=== PATIENT | male | born 1950 | race Caucasian/White ===

== ENCOUNTER → 2016-03-17 | Outpatient (CLI) | payer MEDICARE ==
[2016-03-17 08:55] LABS: PROTHROMBIN TIME 23.8 SEC (11.4-15.4)
== END ==
LOC: OD 08:12
PROVIDERS: ATTEND Internal Medicine
DX: I48.0 Paroxysmal atrial fibrillation (principal)
CPT/HCPCS: 36415; 85610

== ENCOUNTER → 2016-04-14 | Outpatient (CLI) | payer MEDICARE ==
[2016-04-14 08:34] LABS: PROTHROMBIN TIME 30.1 SEC (11.4-15.4)
[2016-04-14 08:49] LABS: ALANINE AMINOTRANSFERASE 32 U/L (21-72); ALBUMIN 3.9 g/dL (3.5-5.0); ALKALINE PHOSPHATASE 60 U/L (38-126); ANION GAP 9 (5-19); ASPARTATE AMINO TRANSFERASE 28 U/L (17-59); BILIRUBIN,TOTAL 0.4 mg/dL (0.2-1.3); BLOOD UREA NITROGEN 16 mg/dL (7-20); CARBON DIOXIDE 28 mmol/L (22-30); CHLORIDE 102 mmol/L (98-107); CHOLESTEROL 137.63 mg/dL (0-200); CREATININE RESULT 0.64 mg/dL (0.52-1.25); Direct HDL 41 mg/dL (>40); GLUCOSE 137 mg/dL (75-110); POTASSIUM 4.6 mmol/L (3.6-5.0); SODIUM 138.9 mmol/L (137-145); TRIGLYCERIDES 166 mg/dL (<150)
[2016-04-14 09:00] LABS: DIRECT LDL 70 mg/dL (<100)
[2016-04-14 09:10] LABS: VLDL CHOLESTEROL 33.2 mg/dL (10-31)
== END ==
LOC: OD 07:41
PROVIDERS: ATTEND Internal Medicine
DX: E78.4 Other hyperlipidemia (principal); I10 Essential (primary) hypertension; E11.9 Type 2 diabetes mellitus without complications; I48.0 Paroxysmal atrial fibrillation; I25.118 Atherosclerotic heart disease of native coronary artery with other forms of angina pectoris; I45.19 Other right bundle-branch block; R01.1 Cardiac murmur, unspecified; J45.998 Other asthma; M10.9 Gout, unspecified; G47.30 Sleep apnea, unspecified; Z79.899 Other long term (current) drug therapy; I25.2 Old myocardial infarction
CPT/HCPCS: 36415; 80053; 80061; 85610

== ENCOUNTER → 2016-06-16 | Outpatient (CLI) | payer MEDICARE ==
[2016-06-16 09:34] LABS: PROTHROMBIN TIME 27.2 SEC (11.4-15.4)
== END ==
LOC: OD 08:15
PROVIDERS: ATTEND Internal Medicine
DX: I48.0 Paroxysmal atrial fibrillation (principal)
CPT/HCPCS: 36415; 85610

== ENCOUNTER → 2016-08-17 | Outpatient (CLI) | payer MEDICARE ==
[2016-08-17 09:30] LABS: PROTHROMBIN TIME 28.9 SEC (11.4-15.4)
== END ==
LOC: OD 08:24
PROVIDERS: ATTEND Internal Medicine
DX: I48.0 Paroxysmal atrial fibrillation (principal)
CPT/HCPCS: 36415; 85610

== ENCOUNTER → 2016-09-17 | Outpatient (CLI) | payer MEDICARE | LOC: OD 08:56 | PROVIDERS: ATTEND Internal Medicine | DX: I48.0 Paroxysmal atrial fibrillation (principal) | CPT/HCPCS: 36415; 85610 ==

== ENCOUNTER → 2016-10-19 | Outpatient (CLI) | payer MEDICARE ==
[2016-10-19 08:37] LABS: PROTHROMBIN TIME 25.2 SEC (11.4-15.4)
[2016-10-19 08:51] LABS: ALANINE AMINOTRANSFERASE 33 U/L (21-72); ALBUMIN 4.1 g/dL (3.5-5.0); ALKALINE PHOSPHATASE 61 U/L (38-126); ANION GAP 12 (5-19); ASPARTATE AMINO TRANSFERASE 26 U/L (17-59); BILIRUBIN,DIRECT 0.4 mg/dL (0.0-0.4); BILIRUBIN,TOTAL 0.4 mg/dL (0.2-1.3); BLOOD UREA NITROGEN 20 mg/dL (7-20); CALCIUM 8.5 mg/dL (8.4-10.2); CARBON DIOXIDE 29 mmol/L (22-30); CHLORIDE 100 mmol/L (98-107); CHOLESTEROL 128.27 mg/dL (0-200); CREATININE RESULT 0.67 mg/dL (0.52-1.25); Direct HDL 36 mg/dL (>40); GLUCOSE 160 mg/dL (75-110); POTASSIUM 4.9 mmol/L (3.6-5.0); SODIUM 141.3 mmol/L (137-145); TOTAL PROTEIN 6.6 g/dL (6.3-8.2); TRIGLYCERIDES 152 mg/dL (<150)
[2016-10-19 09:02] LABS: DIRECT LDL 70 mg/dL (<100)
[2016-10-19 09:03] LABS: VLDL CHOLESTEROL 30.4 mg/dL (10-31)
== END ==
LOC: OD 07:25
PROVIDERS: ATTEND Internal Medicine
DX: Z01.810 Encounter for preprocedural cardiovascular examination (principal); I48.0 Paroxysmal atrial fibrillation; I25.10 Atherosclerotic heart disease of native coronary artery without angina pectoris; I45.19 Other right bundle-branch block; R01.1 Cardiac murmur, unspecified; E78.4 Other hyperlipidemia; I10 Essential (primary) hypertension; I25.2 Old myocardial infarction; J45.998 Other asthma; M10.9 Gout, unspecified; E11.9 Type 2 diabetes mellitus without complications; G47.30 Sleep apnea, unspecified; Z79.899 Other long term (current) drug therapy
CPT/HCPCS: 36415; 80053; 80061; 85610

== ENCOUNTER → 2016-11-18 | Outpatient (CLI) | payer MEDICARE ==
[2016-11-18 10:15] LABS: PROTHROMBIN TIME 28.2 SEC (11.4-15.4)
== END ==
LOC: OD 09:06
PROVIDERS: ATTEND Internal Medicine
DX: I48.0 Paroxysmal atrial fibrillation (principal)
CPT/HCPCS: 36415; 85610

== ENCOUNTER → 2017-01-18 | Outpatient (CLI) | payer MEDICARE ==
[2017-01-18 08:23] LABS: PROTHROMBIN TIME 21.6 SEC (11.4-15.4)
== END ==
LOC: OD 07:40
PROVIDERS: ATTEND Internal Medicine
DX: I48.0 Paroxysmal atrial fibrillation (principal)
CPT/HCPCS: 36415; 85610

== ENCOUNTER → 2017-03-17 | Outpatient (CLI) | payer MEDICARE ==
[2017-03-17 11:06] LABS: INTERNATIONAL RATION (INR) 1.82; PROTHROMBIN TIME 22.1 SEC (11.4-15.4)
== END ==
LOC: OD 10:22
PROVIDERS: ATTEND Internal Medicine
DX: I48.0 Paroxysmal atrial fibrillation (principal)
CPT/HCPCS: 36415; 85610

== ENCOUNTER → 2017-05-02 | Outpatient (CLI) | payer MEDICARE ==
[2017-05-02 11:03] LABS: INTERNATIONAL RATION (INR) 2.47
== END ==
LOC: OD 10:11
PROVIDERS: ATTEND Internal Medicine
DX: I25.10 Atherosclerotic heart disease of native coronary artery without angina pectoris (principal); E11.9 Type 2 diabetes mellitus without complications; I48.0 Paroxysmal atrial fibrillation; I25.2 Old myocardial infarction; R01.1 Cardiac murmur, unspecified; E78.4 Other hyperlipidemia; I10 Essential (primary) hypertension; G47.30 Sleep apnea, unspecified; Z79.899 Other long term (current) drug therapy
CPT/HCPCS: 36415; 83036; 85610

== ENCOUNTER → 2017-06-16 | Outpatient (CLI) | payer MEDICARE ==
[2017-06-16 09:21] LABS: INTERNATIONAL RATION (INR) 2.16; PROTHROMBIN TIME 25.1 SEC (11.4-15.4)
== END ==
LOC: OD 08:19
PROVIDERS: ATTEND Internal Medicine
DX: I48.0 Paroxysmal atrial fibrillation (principal)
CPT/HCPCS: 36415; 85610

== ENCOUNTER → 2017-07-14 | Outpatient (CLI) | payer MEDICARE ==
[2017-07-14 09:01] LABS: INTERNATIONAL RATION (INR) 2.25; PROTHROMBIN TIME 25.9 SEC (11.4-15.4)
== END ==
LOC: OD 07:51
PROVIDERS: ATTEND Internal Medicine
DX: I48.0 Paroxysmal atrial fibrillation (principal)
CPT/HCPCS: 36415; 85610

== ENCOUNTER → 2017-09-15 | Outpatient (CLI) | payer MEDICARE ==
[2017-09-15 08:34] LABS: INTERNATIONAL RATION (INR) 2.15
== END ==
LOC: OD 07:37
PROVIDERS: ATTEND Internal Medicine
DX: I48.0 Paroxysmal atrial fibrillation (principal)
CPT/HCPCS: 36415; 85610

== ENCOUNTER → 2017-10-17 | Outpatient (CLI) | payer MEDICARE ==
[2017-10-17 09:25] LABS: INTERNATIONAL RATION (INR) 2.67; PROTHROMBIN TIME 29.7 SEC (11.4-15.4)
== END ==
LOC: OD 08:04
PROVIDERS: ATTEND Internal Medicine
DX: I48.0 Paroxysmal atrial fibrillation (principal)
CPT/HCPCS: 36415; 85610

== ENCOUNTER → 2017-11-16 | Outpatient (CLI) | payer MEDICARE ==
[2017-11-16 11:05] LABS: INTERNATIONAL RATION (INR) 2.69; PROTHROMBIN TIME 29.9 SEC (11.4-15.4)
== END ==
LOC: OD 09:36
PROVIDERS: ATTEND Internal Medicine
DX: I48.0 Paroxysmal atrial fibrillation (principal)
CPT/HCPCS: 36415; 85610

== ENCOUNTER 2017-11-24 13:57 | Emergency (ER) | payer MEDICARE ==
[2017-11-24 14:09] VITALS: BP 114/53
[2017-11-24] MEDS ORDERED: DIPH/PERTUSS(ACELL)/TETANUS VAC/PF 0.5 ML SYR (>=10YO) IM ONE (14:37)
--- NOTE | 2017-11-24 15:10 | ER Document Report ---
ED Hand/Wrist Injury - General Chief Complaint: Hand Injury Stated Complaint: HAND LACERATION Time Seen by Provider: 11/24/17 14:24 Mode of Arrival: Ambulatory Information source: Patient Notes: Patient is a 67-year-old morbidly obese male comes emergency room complaining of having a nail driven through the thumb and index finger into his hand. He states he was using a nail gun missed its marked and he shot a nail directly into the his hand between the thumb and index finger into the webspace directed back towards the wrist. He states there estimates the nail to be in 3-4 inches long. He took a hammer and pulled it out. He stated that it came out relatively easy and he does not believe he had anything major because he has full range of motion in his hand. He is here primarily because he needs a tetanus shot and he wanted to make sure he did not fracture anything by the high -powered force of the nail. He also has a history of A. fib and is on blood thinners warfarin to be exact. Last checked his level approximately a week ago and it was therapeutic. He denies any other injuries at this time. He denies any severe pain or discomfort. TRAVEL OUTSIDE OF THE [place] IN LAST 30 DAYS: No - HPI Patient complains to provider of: Puncture wound to hand Injury to: Palm, Thumb, Index finger Onset: Just prior to arrival Where: Home Timing: Constant, Better Quality of pain: Achy Severity: Moderate Pain Level: 3 Context: High pressure injection - Related Data Allergies/Adverse Reactions: No Known Allergies Allergy (Verified 11/24/17 14:01) Past Medical History - General Information source: Patient, Relative - Social History Smoking Status: Former Smoker Cigarette use (# per day): No Chew tobacco use (# tins/day): No Smoking Education Provided: No Frequency of alcohol use: None Drug Abuse: None Lives with: Family Family History: Reviewed & Not Pertinent, CAD Patient has suicidal ideation: No Patient has homicidal ideation: No - Past Medical History Cardiac Medical History: Reports: Hx Coronary Artery Disease, Hx DVT, Hx Heart Attack, Hx Hypercholesterolemia, Hx Hypertension, Hx Pulmonary Embolism Pulmonary Medical History: Reports: Hx Asthma, Hx Bronchitis, Hx Sleep Apnea Denies: Hx COPD, Hx Pneumonia, Hx Tuberculosis Neurological Medical History: Denies: Hx Cerebrovascular Accident, Hx Seizures Endocrine Medical History: Reports: Hx Diabetes Mellitus Type 1, Hx Diabetes Mellitus Type 2 Renal/ Medical History: Denies: Hx Peritoneal Dialysis GI Medical History: Reports: Hx Ulcer Musculoskeletal Medical History: Reports Hx Arthritis - generalized Traumatic Medical History: Reports: Hx Fractures Past Surgical History: Reports: Hx Cardiac Surgery - bypass, Hx Coronary Artery Bypass Graft. Denies: Hx Pacemaker - Immunizations Hx Diphtheria, Pertussis, Tetanus Vaccination: Yes Hx Pneumococcal Vaccination: 02/21/09 Review of Systems - Review of Systems Constitutional: No symptoms reported EENT: No symptoms reported Cardiovascular: No symptoms reported Respiratory: No symptoms reported Gastrointestinal: No symptoms reported Genitourinary: No symptoms reported Male Genitourinary: No symptoms reported Musculoskeletal: Joint swelling, Muscle pain, Muscle stiffness. denies: Joint pain, Deformity Skin: No symptoms reported, Other - Puncture wound to 1 of right hand Hematologic/Lymphatic: No symptoms reported Neurological/Psychological: No symptoms reported -: Yes All other systems reviewed and negative Physical Exam - Vital signs Vitals: Temp Pulse Resp BP Pulse Ox 97.6 F 82 14 114/53 L 94 11/24/17 14:08 11/24/17 14:08 11/24/17 14:08 11/24/17 14:08 11/24/17 14:08 Interpretation: Normal - Notes Notes: Patient is a well-nourished well-developed obese 67-year-old male no apparent distress - General General appearance: Alert - HEENT Head: Normocephalic, Atraumatic Eyes: Normal - Respiratory Respiratory status: No respiratory distress Chest status: Nontender Breath sounds: Normal. No: Rales, Rhonchi, Stridor, Wheezing Chest palpation: Normal - Cardiovascular Rhythm: Regular Heart sounds: Normal auscultation Murmur: No - Extremities General upper extremity: Tender, Edema, Normal color, Normal ROM, Normal strength, Normal temperature Hand: Tender, No evidence of FB, Swelling, Other - Examination patient's right hand shows her to be a slight amount of dried blood on the dorsal aspect between the thumb and index finger. There is a closed area of suspected entrance and exit of a puncture wound of the high impact nail gun. There is no surrounding trauma that is visual. 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 He also has good cap refill in the nailbeds of all the fingers of the right hand. On inspection it appears as though patient has missed all vital bones and tendons in that hand.. No: Tendon deficit - Skin Skin Temperature: Warm Skin Moisture: Dry Skin Color: Normal, Egan, Other - See hand above and description Course - Re-evaluation Re-evalutation: 11/24/17 16:09 After inspection of the puncture wound there was really no entrance or laceration that needed to be sewn. We cleaned the area extensively and he was hardly even bleeding so we just applied a Band-Aid. There was nothing to suture. I have explained to patient the importance of watching this very closely. He is a diabetic and I have informed him that even a month out or even a month and a half out that if he notices swelling and redness in the hand to come right to ER. Informed him that this is a joint space area and even though he is got full range of motion I do not know if that nail went into any joint space. He acknowledged understanding of this and will write it down on his calendar. I am going to place patient on Bactrim for coverage and a little pain medication for the discomfort that he is going to be feeling. - Vital Signs Vital signs: Temp Pulse Resp BP Pulse Ox 97.6 F 82 14 114/53 L 94 11/24/17 14:08 11/24/17 14:08 11/24/17 14:08 11/24/17 14:08 11/24/17 14:08 Discharge - Discharge Clinical Impression: Puncture wound of hand, right Qualifiers: Encounter type: initial encounter Foreign body presence: with foreign body Qualified Code(s): S61.441A - Puncture wound with foreign body of right hand, initial encounter Injury of right hand by nail gun Qualifiers: Encounter type: initial encounter Qualified Code(s): S69.91XA - Unspecified injury of right wrist, hand and finger(s), initial encounter; W29.4XXA - Contact with nail gun, initial encounter; W29.4XXA - Contact with nail gun, initial encounter Condition: Stable Disposition: HOME, SELF-CARE Instructions: Puncture Wound ([facility]) Additional Instructions: Home setting rest. You may ice down the area 3 times a day. Take all of the antibiotics. As we discussed you must monitor this puncture wound very closely. Even though you have full range of motion and strength with that hand and you take all the antibiotics in a month to month and a half from now if you get swelling of the hand and redness occurring you come to the ER at once. The reason is I do not know what anatomy this high velocity nail punctured on its way in. If he got into any kind of joint space in the joint space closes up and gets infected it can take that long for it to materialize. So if you have any concerns about the swelling of your hand or the loss of function even after a month and a half see your primary care provider or return to ER for recheck. Let the provider know that she had a high velocity puncture wound on November 24. Return to ER if you have any concerns or problems in the meantime. Prescriptions: Hydrocodone/Acetaminophen [[place] 7.5-325 mg Tablet] 1 tab PO Q6 #10 tablet Sulfamethoxazole/Trimethoprim [Bactrim Ds Tablet] 1 each PO BID #20 tablet Referrals: OLEG KING MD [Primary Care Provider] - Follow up as needed
--- NOTE | 2017-11-24 15:49 | RADIOLOGY REPORT (SQ) ---
EXAM DESCRIPTION: HAND RIGHT 3 VIEWS COMPLETED DATE/TIME: 11/24/2017 2:51 pm REASON FOR STUDY: put 4 inch nail through hand, Pulled out himself shot right hand with a nail gun, pain in the 2nd through 4th metacarpal region COMPARISON: None. EXAM PARAMETERS: NUMBER OF VIEWS: Three views. TECHNIQUE: AP, lateral and oblique radiographic images acquired of the right hand. LIMITATIONS: None. FINDINGS: MINERALIZATION: Normal. BONES: No acute fracture or dislocation. No worrisome bone lesions. JOINTS: Mild changes of osteoarthritis with joint space narrowing and bony spurring at the thumb MCP and interphalangeal joint, 2nd finger PIP and DIP joint, 3rd finger DIP joint. SOFT TISSUES: No soft tissue swelling. No retained radiopaque foreign body. OTHER: No other significant finding. IMPRESSION: No retained radiopaque foreign body. No acute fracture. TECHNICAL DOCUMENTATION: JOB ID: [id number] [employer]- All Rights Reserved Reading location - IP/workstation name: [email or web address]
== END 2017-11-24 16:47 | disposition home or self-care (01) ==
LOC: ER 13:57
DX: S61.441A Puncture wound with foreign body of right hand, initial encounter (principal); S69.91XA Unspecified injury of right wrist, hand and finger(s), initial encounter; W29.4XXA Contact with nail gun, initial encounter; E78.00 Pure hypercholesterolemia, unspecified; I25.10 Atherosclerotic heart disease of native coronary artery without angina pectoris; I10 Essential (primary) hypertension; E11.9 Type 2 diabetes mellitus without complications; Z23 Encounter for immunization; Z86.718 Personal history of other venous thrombosis and embolism; I25.2 Old myocardial infarction; Z95.1 Presence of aortocoronary bypass graft; Z79.02 Long term (current) use of antithrombotics/antiplatelets
CPT/HCPCS: 90471; 90715; 99283

== ENCOUNTER → 2017-12-14 | Outpatient (CLI) | payer MEDICARE ==
[2017-12-14 10:37] LABS: INTERNATIONAL RATION (INR) 2.63; PROTHROMBIN TIME 29.3 SEC (11.4-15.4)
== END ==
LOC: OD 09:18
PROVIDERS: ATTEND Internal Medicine
DX: I48.0 Paroxysmal atrial fibrillation (principal)
CPT/HCPCS: 36415; 85610

== ENCOUNTER → 2018-01-19 | Outpatient (CLI) | payer MEDICARE | LOC: OD 08:34 | PROVIDERS: ATTEND Internal Medicine | DX: I48.0 Paroxysmal atrial fibrillation (principal) | CPT/HCPCS: 36415; 85730 ==

== ENCOUNTER → 2018-02-16 | Outpatient (CLI) | payer MEDICARE ==
[2018-02-16 09:05] LABS: INTERNATIONAL RATION (INR) 2.47; PROTHROMBIN TIME 27.9 SEC (11.4-15.4)
== END ==
LOC: OD 08:02
PROVIDERS: ATTEND Internal Medicine
DX: I48.0 Paroxysmal atrial fibrillation (principal)
CPT/HCPCS: 36415; 85610

== ENCOUNTER → 2018-03-17 | Outpatient (CLI) | payer MEDICARE ==
[2018-03-17 10:23] LABS: INTERNATIONAL RATION (INR) 1.99; PROTHROMBIN TIME 23.6 SEC (11.4-15.4)
[2018-03-17 10:29] LABS: CHOLESTEROL 155.48 mg/dL (0-200); TRIGLYCERIDES 198 mg/dL (<150)
[2018-03-17 10:40] LABS: DIRECT LDL 87 mg/dL (<100)
[2018-03-17 10:43] LABS: VLDL CHOLESTEROL 39.6 mg/dL (10-31)
== END ==
LOC: OD 08:59
PROVIDERS: ATTEND Internal Medicine
DX: I25.10 Atherosclerotic heart disease of native coronary artery without angina pectoris (principal); I10 Essential (primary) hypertension; E11.9 Type 2 diabetes mellitus without complications; E78.49 Other hyperlipidemia; J45.998 Other asthma; R01.1 Cardiac murmur, unspecified; M10.9 Gout, unspecified; G47.30 Sleep apnea, unspecified; I45.19 Other right bundle-branch block; I25.2 Old myocardial infarction; Z79.899 Other long term (current) drug therapy
CPT/HCPCS: 36415; 80061; 83036; 85610

== ENCOUNTER → 2018-06-16 | Outpatient (CLI) | payer MEDICARE ==
[2018-06-16 10:03] LABS: INTERNATIONAL RATION (INR) 2.56; PROTHROMBIN TIME 28.7 SEC (11.4-15.4)
== END ==
LOC: OD 09:22
PROVIDERS: ATTEND Internal Medicine
DX: I48.0 Paroxysmal atrial fibrillation (principal)
CPT/HCPCS: 36415; 85610

== ENCOUNTER → 2018-08-14 | Outpatient (CLI) | payer MEDICARE ==
[2018-08-14 09:50] LABS: INTERNATIONAL RATION (INR) 1.82
== END ==
LOC: OD 08:58
PROVIDERS: ATTEND Internal Medicine
DX: I48.0 Paroxysmal atrial fibrillation (principal)
CPT/HCPCS: 36415; 85610

== ENCOUNTER → 2018-09-15 | Outpatient (CLI) | payer MEDICARE ==
[2018-09-15 09:52] LABS: INTERNATIONAL RATION (INR) 2.22
== END ==
LOC: OD 08:44
PROVIDERS: ATTEND Internal Medicine
DX: I48.0 Paroxysmal atrial fibrillation (principal)
CPT/HCPCS: 36415; 85610

== ENCOUNTER 2018-10-25 22:45 | Emergency (ER) | payer MEDICARE ==
[2018-10-25 22:55] VITALS: BP 175/74
--- NOTE | 2018-10-26 00:48 | ER Document Report ---
HPI - HPI Patient complains to provider of: laceration L [place] Time Seen by Provider: 10/25/18 23:31 Pain Level: Denies Context: 68-year-old male with insulin-dependent diabetes mellitus on Coumadin presents to the emergency department for a laceration on his left anterior lower leg when he was walking through some brush and he got jabbed by a stick earlier today. Patient states that his tried to put a dressing on it and it would not stop bleeding. Patient states his last tetanus was 1 year ago. Patient denies any dizziness or lightheadedness, massive blood loss, weakness, syncope, acute shortness of breath or chest pain, palpitations, or any other symptoms. Past Medical History - Social History Smoking Status: Former Smoker Family History: Reviewed & Not Pertinent, CAD Patient has suicidal ideation: No Patient has homicidal ideation: No - Past Medical History Cardiac Medical History: Reports: Hx Coronary Artery Disease, Hx DVT, Hx Heart Attack, Hx Hypercholesterolemia, Hx Hypertension, Hx Pulmonary Embolism Pulmonary Medical History: Reports: Hx Asthma, Hx Bronchitis, Hx Sleep Apnea Denies: Hx COPD, Hx Pneumonia, Hx Tuberculosis Neurological Medical History: Denies: Hx Cerebrovascular Accident, Hx Seizures Endocrine Medical History: Reports: Hx Diabetes Mellitus Type 1, Hx Diabetes Mellitus Type 2 Renal/ Medical History: Denies: Hx Peritoneal Dialysis GI Medical History: Reports: Hx Ulcer Musculoskeletal Medical History: Reports Hx Arthritis - generalized Traumatic Medical History: Reports: Hx Fractures Past Surgical History: Reports: Hx Cardiac Surgery - bypass, Hx Coronary Artery Bypass Graft. Denies: Hx Pacemaker - Immunizations Hx Diphtheria, Pertussis, Tetanus Vaccination: Yes Hx Pneumococcal Vaccination: 02/21/09 Vertical Provider Document - CONSTITUTIONAL Notes: PHYSICAL EXAMINATION: Reviewed vital signs and charting by RN GENERAL: Alert, interacts well. No acute distress. HEAD: Normocephalic, atraumatic. EYES: Pupils equal and round. Extraocular movements intact. ENT: Oral mucosa moist, tongue midline. NECK: Full range of motion. Trachea midline. EXTREMITIES: Moves all 4 extremities spontaneously. Small laceration U-shaped continually oozing blood, no foreign body seen PSYCH: Normal affect, normal mood. SKIN: Warm, dry, normal turgor. See above for laceration - INFECTION CONTROL TRAVEL OUTSIDE OF THE [place] IN LAST 30 DAYS: No Course - Re-evaluation Re-evalutation: 10/26/18 00:47 Patient is well-appearing with a slow oozing laceration. Last tetanus 1 year ago, because patient is on anticoagulation plan is to perform a primary closure. Wound was anesthetized with lidocaine 1% with epinephrine and copiously irrigated and explored. There is no evidence of foreign body seen. Wound was closed with 4-0 Prolene in 3 sutures placed, bleeding control was obtained, we will place a Telfa pad and a gentle pressure dressing over it. Patient does not require his tetanus shot. Patient has been given strict return precautions and discharge instructions. Patient understands and agrees with plan stable for discharge. - Vital Signs Vital signs: Temp Pulse Resp BP Pulse Ox 97.6 F 93 22 H 175/74 H 95 10/25/18 22:47 10/25/18 22:47 10/25/18 22:47 10/25/18 22:47 10/25/18 22:47 Procedures - Laceration/Wound Repair Left Distal Leg Wound length (cm): 1 Wound's Depth, Shape: Superficial, Irregular Laceration pre-procedure: Sterile PPE donned Anesthetic type: 1% Lidocaine w/epi Wound explored: Clean, No foreign body removed Irrigated w/ Saline (mLs): 500 Wound Debrided: Minimal Wound Repaired With: Sutures Suture Size/Type: 4:0, Prolene Post-procedure wound care: Sterile dressing applied Post-procedure NV exam normal: Yes Complications: No Discharge - Discharge Clinical Impression: Laceration Condition: Good Disposition: HOME, SELF-CARE Additional Instructions: Please return to your primary doctor, the ED, or an urgent care in 7 days for suture removal. Return immediately if you develop spreading redness around the wound, pus from the wound, worsening pain, or a fever of >101. Keep the area clean and dry. Wash gently with soap and water twice daily and cover with antibiotic ointment. Referrals: OLEG KING MD [Primary Care Provider] - Follow up as needed
== END 2018-10-26 00:56 | disposition home or self-care (01) ==
LOC: ER 22:45
DX: S81.812A Laceration without foreign body, left lower leg, initial encounter (principal); W22.8XXA Striking against or struck by other objects, initial encounter; Y93.01 Activity, walking, marching and hiking; I25.10 Atherosclerotic heart disease of native coronary artery without angina pectoris; I10 Essential (primary) hypertension; I25.2 Old myocardial infarction; J45.909 Unspecified asthma, uncomplicated; E11.9 Type 2 diabetes mellitus without complications; Z79.4 Long term (current) use of insulin; Z79.01 Long term (current) use of anticoagulants; Z87.891 Personal history of nicotine dependence; Z95.5 Presence of coronary angioplasty implant and graft; Z86.711 Personal history of pulmonary embolism; Z86.718 Personal history of other venous thrombosis and embolism
CPT/HCPCS: 99282

== ENCOUNTER → 2018-12-14 | Outpatient (CLI) | payer MEDICARE ==
[2018-12-14 09:55] LABS: INTERNATIONAL RATION (INR) 2.13; PROTHROMBIN TIME 24.2 SEC (11.4-15.4)
== END ==
LOC: OD 08:51
PROVIDERS: ATTEND Internal Medicine
DX: I48.0 Paroxysmal atrial fibrillation (principal)
CPT/HCPCS: 36415; 85610

== ENCOUNTER → 2019-03-15 | Outpatient (CLI) | payer MEDICARE ==
[2019-03-15 11:46] LABS: INTERNATIONAL RATION (INR) 1.94; PROTHROMBIN TIME 22.4 SEC (11.4-15.4)
== END ==
LOC: OD 10:50
PROVIDERS: ATTEND Internal Medicine
DX: I48.0 Paroxysmal atrial fibrillation (principal)
CPT/HCPCS: 36415; 85610

== ENCOUNTER → 2019-04-18 | Outpatient (CLI) | payer MEDICARE ==
[2019-04-18 10:09] LABS: INTERNATIONAL RATION (INR) 2.01
== END ==
LOC: OD 08:59
PROVIDERS: ATTEND Internal Medicine
DX: I48.0 Paroxysmal atrial fibrillation (principal)
CPT/HCPCS: 36415; 85610

== ENCOUNTER → 2019-05-15 | Outpatient (CLI) | payer MEDICARE ==
[2019-05-15 13:25] LABS: INTERNATIONAL RATION (INR) 1.85; PROTHROMBIN TIME 21.5 SEC (11.4-15.4)
== END ==
LOC: OD 12:44
PROVIDERS: ATTEND Internal Medicine
DX: I48.0 Paroxysmal atrial fibrillation (principal)
CPT/HCPCS: 36415; 85610

== ENCOUNTER → 2019-06-13 | Outpatient (CLI) | payer MEDICARE ==
[2019-06-13 09:01] LABS: PROTHROMBIN TIME 22.1 SEC (11.4-15.4)
== END ==
LOC: OD 08:22
PROVIDERS: ATTEND Internal Medicine
DX: I48.0 Paroxysmal atrial fibrillation (principal)
CPT/HCPCS: 36415; 85610

== ENCOUNTER → 2019-07-18 | Outpatient (CLI) | payer MEDICARE ==
[2019-07-18 09:11] LABS: INTERNATIONAL RATION (INR) 2.37; PROTHROMBIN TIME 26.3 SEC (11.4-15.4)
== END ==
LOC: OD 08:08
PROVIDERS: ATTEND Internal Medicine
DX: I48.0 Paroxysmal atrial fibrillation (principal)
CPT/HCPCS: 36415; 85610

== ENCOUNTER → 2019-08-15 | Outpatient (CLI) | payer MEDICARE ==
[2019-08-15 10:43] LABS: INTERNATIONAL RATION (INR) 1.97; PROTHROMBIN TIME 22.7 SEC (11.4-15.4)
== END ==
LOC: OD 09:54
PROVIDERS: ATTEND Internal Medicine
DX: I48.0 Paroxysmal atrial fibrillation (principal)
CPT/HCPCS: 36415; 85610

== ENCOUNTER → 2019-11-13 | Outpatient (CLI) | payer MEDICARE ==
[2019-11-13 16:28] LABS: INTERNATIONAL RATION (INR) 1.82; PROTHROMBIN TIME 21.1 SEC (11.4-15.4)
== END ==
LOC: OD 14:29
PROVIDERS: ATTEND Internal Medicine
DX: I48.0 Paroxysmal atrial fibrillation (principal)
CPT/HCPCS: 36415; 85610

== ENCOUNTER → 2019-12-19 | Outpatient (CLI) | payer MEDICARE ==
[2019-12-19 10:23] LABS: INTERNATIONAL RATION (INR) 1.13; PROTHROMBIN TIME 14.7 SEC (11.4-15.4)
== END ==
LOC: OD 08:23
PROVIDERS: ATTEND Internal Medicine
DX: Z51.81 Encounter for therapeutic drug level monitoring (principal); Z79.01 Long term (current) use of anticoagulants; I48.0 Paroxysmal atrial fibrillation
CPT/HCPCS: 36415; 85610

== ENCOUNTER → 2020-01-15 | Outpatient (CLI) | payer MEDICARE ==
[2020-01-15 09:59] LABS: INTERNATIONAL RATION (INR) 1.27; PROTHROMBIN TIME 16.1 SEC (11.4-15.4)
== END ==
LOC: OD 09:13
PROVIDERS: ATTEND Internal Medicine
DX: I48.0 Paroxysmal atrial fibrillation (principal); Z51.81 Encounter for therapeutic drug level monitoring; Z79.01 Long term (current) use of anticoagulants
CPT/HCPCS: 36415; 85610

== ENCOUNTER → 2020-01-29 | Outpatient (CLI) | payer MEDICARE | LOC: OD 15:06 | PROVIDERS: ATTEND Otolaryngology | DX: J30.9 Allergic rhinitis, unspecified (principal) | CPT/HCPCS: 36415; 82785; 86003 ==

== ENCOUNTER → 2020-03-12 | Outpatient (CLI) | payer MEDICARE ==
[2020-03-12 09:53] LABS: ABSOLUTE EOSINOPHILS # (AUTO) 0.2 10^3/uL (0.0-0.6); ABSOLUTE LYMPHOCYTES (AUTO) 3.9 10^3/uL (0.5-4.7); ABSOLUTE MONOCYTES (AUTO) 0.6 10^3/uL (0.1-1.4); ABSOLUTE NEUT (AUTO) 4.8 10^3/uL (1.7-8.2); BASOPHILS % (AUTO) 0.5 % (0-2); EOSINOPHILS % (AUTO) 2.5 % (0-6); HEMATOCRIT 37.7 % (37.9-51.0); HEMOGLOBIN 12.4 g/dL (13.5-17.0); LYMPHOCYTES % (AUTO) 40.7 % (13-45); MEAN CORPUSCULAR HEMOGLOBIN 27.5 pg (27.0-33.4); MEAN CORPUSCULAR HGB CONC 32.8 g/dL (32.0-36.0); MEAN CORPUSCULAR VOLUME 84 fl (80-97); MONOCYTES % (AUTO) 6.4 % (3-13); PLATELET COUNT 208 10^3/uL (150-450); RED CELL DISTRIBUTION WIDTH 16.3 % (11.5-14.0); SEGMENTED NEUTROPHILS % (AUTO) 49.9 % (42-78); TOTAL CELLS COUNTED % (AUTO) 100 %; WHITE BLOOD COUNT 9.6 10^3/uL (4.0-10.5)
[2020-03-12 09:57] LABS: INTERNATIONAL RATION (INR) 1.56; PROTHROMBIN TIME 18.8 SEC (11.4-15.4)
[2020-03-12 10:11] LABS: ALBUMIN 4.3 g/dL (3.5-5.0); ALKALINE PHOSPHATASE 67 U/L (38-126); ANION GAP 8 (5-19); ASPARTATE AMINO TRANSFERASE 31 U/L (17-59); BILIRUBIN,DIRECT 0.2 mg/dL (0.0-0.4); BILIRUBIN,TOTAL 0.4 mg/dL (0.2-1.3); BLOOD UREA NITROGEN 18 mg/dL (7-20); CALCIUM 9.1 mg/dL (8.4-10.2); CARBON DIOXIDE 29 mmol/L (22-30); CHLORIDE 101 mmol/L (98-107); CHOLESTEROL 139.78 mg/dL (0-200); GLUCOSE 160 mg/dL (75-110); POTASSIUM 4.5 mmol/L (3.6-5.0); TOTAL PROTEIN 7.4 g/dL (6.3-8.2); TRIGLYCERIDES 189 mg/dL (<150)
[2020-03-12 10:20] LABS: INTERNATIONAL RATION (INR) 1.56; PROTHROMBIN TIME 18.8 SEC (11.4-15.4)
[2020-03-12 10:22] LABS: DIRECT LDL 77 mg/dL (<100)
[2020-03-12 10:26] LABS: VLDL CHOLESTEROL 37.8 mg/dL (10-31)
== END ==
LOC: OD 08:11
PROVIDERS: ATTEND Specialist
DX: I25.10 Atherosclerotic heart disease of native coronary artery without angina pectoris (principal); E66.01 Morbid (severe) obesity due to excess calories; I25.2 Old myocardial infarction; E78.49 Other hyperlipidemia; R01.1 Cardiac murmur, unspecified; I10 Essential (primary) hypertension; E11.9 Type 2 diabetes mellitus without complications; I45.19 Other right bundle-branch block; J45.998 Other asthma; M10.9 Gout, unspecified; G47.30 Sleep apnea, unspecified; C95.91 Leukemia, unspecified, in remission; R25.1 Tremor, unspecified; I48.0 Paroxysmal atrial fibrillation; Z51.81 Encounter for therapeutic drug level monitoring; Z79.01 Long term (current) use of anticoagulants; Z79.899 Other long term (current) drug therapy
CPT/HCPCS: 36415; 80048; 80061; 80076; 83036; 85025; 85610